=== PATIENT | female | born 1995 | race Caucasian/White ===

== ENCOUNTER → 2021-10-17 08:18 | Outpatient (BNVA) | payer MEDICAID, SELFPAY | PROVIDERS: Visit Provider Physician Assistant | CPT/HCPCS: 99202 ==

== ENCOUNTER → 2021-10-23 14:45 | Outpatient (BNVA) | payer OTHER, SELFPAY | PROVIDERS: Visit Provider Counselor Mental Health | DX: F50.81 Binge eating disorder (principal); F32.A Depression, unspecified | CPT/HCPCS: 90791 ==

== ENCOUNTER 2021-11-17 14:25 | Outpatient (REF) | payer MEDICAID, SELFPAY ==
[2021-11-18 13:31] LABS: H Pylori Breath Test Negative (Negative)
== END 2021-11-17 14:26 | disposition home or self-care (01) ==
LOC: CF 14:25
PROVIDERS: Visit Provider Physician Assistant
DX: Z01.818 Encounter for other preprocedural examination (principal); E66.01 Morbid (severe) obesity due to excess calories; F50.81 Binge eating disorder; Z79.899 Other long term (current) drug therapy; Z71.3 Dietary counseling and surveillance; Z11.0 Encounter for screening for intestinal infectious diseases
CPT/HCPCS: 36415; 83013; 99211; 99212

== ENCOUNTER → 2021-11-27 08:14 | Outpatient (BNVA) | payer MEDICAID, SELFPAY | PROVIDERS: Visit Provider Dietitian, Registered | DX: Z13.89 Encounter for screening for other disorder (principal) ==

== ENCOUNTER 2021-12-09 18:07 | Emergency (ER) | payer MEDICAID, SELFPAY ==
--- NOTE | ~2021-12-09 | XR_ITS ---
EXAMINATION: XR KNEE, RIGHT CLINICAL INFORMATION: Fall and pain COMPARISON: None TECHNIQUE: Two views of the right knee. FINDINGS: No significant joint effusion. Bones are normal anatomic alignment with no acute fracture or dislocation seen. No definitive bony degenerative changes or periosteal reaction. XR/XR knee RT 2V IMPRESSION: No acute bony abnormality.
[2021-12-09 18:44] VITALS: BP 143/52; PULSE 110; RESP 20; TEMP 36.6; O2SAT 100; BMI 68.4
--- NOTE | 2021-12-09 20:52 | ED.EXTPRO ---
HPI - Extremity Problem General Chief complaint: Extremity Problem Stated complaint: rt knee pain Time Seen by Provider: 12/09/21 20:52 Source: patient Mode of arrival: ambulatory Limitations: no limitations History of Present Illness HPI Narrative: 26 y/o female presents to the ER with 1 month of right knee pain. She reports falling on it 1 month ago and has had pain since. She did not get evaluated at that time and has just been taking it easy waiting for it to get better. Over the last 2 days the pain has been worse with sharp shooting pains with certain movements. No new injury. She reports her knee can feel like its going to give out at times. She has been taking Motrin and using topical icy hot with minimal relief. MD Complaint: joint pain Onset (ago): week(s) Pain Consistency: constant Location: right and knee Severity scale (1-10): 7 Quality: aching Radiation: none Relieving factors: immobilization Exacerbating factors: range of motion, weight bearing and palpation Associated symptoms: denies other symptoms Related Data Home Medications Medication Instructions Recorded Confirmed bupropion HCl 150 mg tablet,12 hr 150 mg PO BID 11/17/21 11/17/21 sustained-release phentermine 15 mg capsule 15 mg PO QAM 11/17/21 11/17/21 Allergies Allergy/AdvReac Type Severity Reaction Status Date / Time No Known Allergies Allergy Verified 11/17/21 14:34 Review of Systems Review of Systems: Constitutional: No Fever, No Chills Cardiovascular: No Chest Pain, No SOB Gastrointestinal: No Nausea, No Vomiting Musculoskeletal: + joint pain, No Myalgias Skin: No Skin Lesions, No rash Neuro: No Weakness, No Numbness Heme/Lymph: No Bruising, No Lymphadenopathy [facility] Past Medical History Surgical History No pertinent past surgical history Family History Family History Mother No problems noted. Father No problems noted. Brother No problems noted. Social History Social History (Updated 10/16/21 @ 10:49 by Precious Crisostomo LPN) Alcohol intake: current Alcohol intake frequency: holidays/special occasions only Patient Tobacco Use Status: Never used Tobacco Advance Directives: No Advance Directives Information Provided: No Physical Exam Vital Signs: Vital Signs: Last Vital Signs Temp 97.9 F 12/09/21 18:44 Pulse 110 H 12/09/21 18:44 Resp 20 12/09/21 18:44 BP 143/52 H 12/09/21 18:44 Pulse Ox 100 12/09/21 18:44 BMI result Body Mass Index 68.4 Appearance: Alert. Oriented X3. No acute distress. HEENT: normal inspection CVS: Normal heart rate and rhythm. Pulses normal. Respiratory: No respiratory distress. Skin: Skin warm and dry. Normal skin color. Normal skin turgor. No rashes. Extremities: Normal inspection of the bilateral knees, pain with complete extension and flexion past 90 degrees. Tenderness of the patellar tendon and both medial and lateral joint lines. Unable to assess joint laxity due to body habitus. Neuro: Oriented X 3. No motor deficit. No sensory deficit. Ambulatory with slight limp. Course Course Course Narrative: 26-year-old female presenting to the ER with 1 month of right knee pain after a fall on the [place]. She reports worsening pain the last couple of days with shooting type twinging pains with certain movements. She reports her knee giving out on her when she is going down the stairs. Concern for possible ligamentous injury. Her x-rays today are normal. Will refer to orthopedics for further evaluation treatment. She is ambulatory and pain is tolerable. Jean wrap provided for support and compression, recommended trial of NSAIDs, rest, ice, elevation. She will follow-up with ortho as soon as possible. Stable for DC. Critical Care Time Critical Care Time Critical Care Time: No Discharge Plan Discharge Clinical Impression: Knee sprain Patient Disposition: Home, Self-Care Additional Instructions: Your x-rays today were normal. Recommend following up with orthopedics for further evaluation and treatment. Name and number below. Until you are evaluated by Orthopedics, rest and take it easy. Elevate your knee when able and ice it several times a day. Recommend trial of anti-inflammatory medications such as Aleve, Motrin, ibuprofen, or Advil. Take every 6-8 hours for 2 or 3 days and see if there is any improvement. If you develop new or worsening symptoms call 911 or come back to the ER for further evaluation. Prescriptions: No Action bupropion HCl 150 mg tablet sustained-release 12 hr 150 mg PO BID 0RF phentermine 15 mg capsule 15 mg PO QAM 0RF Referrals: Roxann Fuentes PA-C [Physician [employer]] - 1 week (right knee pain x1 month, concern for possible ligamentous injury) Interventions: ED Discharge Assessment Last Done: 12/09/21 22:05 Discharge Date/Time: 12/09/21 22:06
== END 2021-12-09 22:06 | disposition home or self-care (01) ==
PROVIDERS: Emergency Provider Emergency Medicine Emergency Medical Services
DX: M25.561 Pain in right knee (principal); R00.2 Palpitations; Z79.899 Other long term (current) drug therapy
CPT/HCPCS: 73560; 99283

== ENCOUNTER → 2021-12-17 08:06 | Outpatient (BNVA) | payer MEDICAID, SELFPAY | PROVIDERS: Visit Provider Dietitian, Registered | DX: Z13.89 Encounter for screening for other disorder (principal) ==

== ENCOUNTER → 2021-12-22 14:00 | Outpatient (BNVA) | payer OTHER, SELFPAY | PROVIDERS: Visit Provider Counselor Mental Health | DX: F50.81 Binge eating disorder (principal); F32.A Depression, unspecified; Z63.4 Disappearance and death of family member | CPT/HCPCS: 90834 ==

== ENCOUNTER 2022-01-15 06:04 | Outpatient (REF) | payer OTHER, SELFPAY | END 2022-01-15 06:05 | disposition home or self-care (01) | LOC: HO.HOSX 06:04 | PROVIDERS: Visit Provider Physician Assistant | DX: Z13.89 Encounter for screening for other disorder (principal) ==

== ENCOUNTER 2023-01-31 15:28 | Emergency (ER) | payer OTHER, SELFPAY ==
[2023-01-31 15:36] VITALS: BP 157/97; PULSE 113; RESP 18; TEMP 36.8; O2SAT 99; BMI 70.5
--- NOTE | 2023-01-31 15:38 | ED.GENADULT ---
HPI - General Adult General Chief complaint: Dental/Oral Stated complaint: Gums swollen Time Seen by Provider: 01/31/23 15:58 Source: patient Mode of arrival: ambulatory Limitations: no limitations History of Present Illness HPI narrative: 27 yold female presents for left upper gum swelling near cracked tooth that has too be extracted. patient states no facial sweling, neck swelling, drooling, change in voice, chest pain, rash, or shortness of breath. Related Data Home Medications Medication Instructions Recorded Confirmed bupropion HCl 150 mg tablet,12 hr 150 mg PO BID 11/17/21 11/17/21 sustained-release phentermine 15 mg capsule 15 mg PO QAM 11/17/21 11/17/21 Previous Rx's Medication Instructions Recorded amoxicillin 875 mg-potassium 1 tab PO Q12H 10 days #20 tabs 01/31/23 clavulanate 125 mg tablet naproxen 500 mg tablet 500 mg PO BID PRN pain 7 days #14 01/31/23 tabs Allergies Allergy/AdvReac Type Severity Reaction Status Date / Time No Known Allergies Allergy Verified 11/17/21 14:34 Review of Systems Review of Systems: toothaceh and left upper gum pain Yes all other systems are reviewed and are negative PMFSH Past Medical History Surgical History No pertinent past surgical history Family History Family History Mother No problems noted. Father No problems noted. Brother No problems noted. Social History Social History (Updated 10/16/21 @ 10:49 by Precious Crisostomo LPN) Alcohol intake: current Alcohol intake frequency: holidays/special occasions only Patient Tobacco Use Status: Never used Tobacco Advance Directives: No Advance Directives Information Provided: No Physical Exam ED Vital Signs: Vital Signs - 24 hr 01/31/23 15:36 Temperature 98.3 F Pulse Rate 113 H Respiratory Rate 18 Blood Pressure 157/97 H Pulse Oximetry 99 Oxygen Delivery Method Room Air BMI result Body Mass Index 70.5 Const General: cooperative, healthy appearing, comfortable, no acute distress, well developed, alert, awake and Physically active Orientation/consciousness: oriented to person, oriented to place, oriented to time and patient oriented x3 HENMT Other: no facial swelling, neck swelling, or jaw swelling Head: Yes normal to inspection, Yes No palpable skull fracture present, Yes normocephalic, Yes atraumatic and No abrasion Ears: hearing grossly normal bilaterally, external ears normal, TM's normal bilaterally, TM normal on the right, TM normal on the left, EAC's normal, mastoids normal and no periauricular adenopathy Teeth image: 1. redness and tender, but no fluctulance or drainage. 2. cracked tooth with yellow collection Eyes General: appearance normal, both eyes and all related structures Neck Neck: Yes normal visual inspection, Yes full ROM, Yes no lymphadenopathy, Yes no meningeal signs, Yes trachea midline, Yes supple, No anterior neck swelling and No tender Chest Chest palpation & inspection: normal inspection of the chest and normal palpation of entire chest wall Resp Effort & Inspection: normal respiratory effort and able to speak in complete sentences Auscultation: clear to auscultation bilaterally Cardio Jugular venous distension: no JVD Heart sounds: S1 normal heart sound present and S2 normal heart sound present GI Inspection: Yes normal to inspection and No abdominal wall ecchymosis Palpation (GI): Soft to palpation, not firm, nontender, no guarding and not rigid General: No CVA tenderness and Yes no CVA tenderness Back/Spine/Pelvis Back: no CVA tenderness, No CVA tenderness and No back tenderness Skin General skin exam: no rashes or lesions noted and elasticity normal Neuro General: oriented to person, oriented to place, oriented to time, patient oriented x3, gait normal, tone normal, moves all extremities, Normal light touch and pain sensation, no meningeal signs, no focal motor deficits, CN's II-XI intact bilaterally and normal sensation to monofilament Extrem General: Yes normal to inspection and Yes full ROM Psych Appearance: grossly normal, well kempt and not disheveled Course Course Course Narrative: RME: 27 yold female with pmh of poor dental hygeine presents to the ED for left upper gum near cracked tooth. patient denies any recent trauma to the face, neck swelling, drooling, or facial swelling. positive for fum swelling near cracked tooth. Repeat blood pressure improved. Medical Decision Making Medical Decision Making MDM Narrative: 27 yold female with left upper molar pain with slight gum swelling. cracked tooth with pus collectino on exam and gum is red, but no fluctulance or drainage. no neck/face/jaw swelling. no chest pain or shortness of breath. No incision and drainge ordered Differential Diagnosis Differential Diagnoses: The differential diagnosis associated with the presentation includes (Glynn angina, tooth infection, gum abscess, retropharyngeal abscess, ) Prescription Management I considered prescription management with: Pain Medication and Antibiotic Discharge Plan Discharge Clinical Impression: Toothache Patient Disposition: Home, Self-Care Instructions: Toothache (ED) Additional Instructions: Return to the ED immediatley for facial swelling, redness, neck swelling, worsening dental/gum pain, drooling, fever, chills, change in voice, or any other concerning symptoms. Prescriptions: New amoxicillin-pot clavulanate 875-125 mg tablet 1 tab PO Q12H 10 Days Qty: 20 0RF naproxen 500 mg tablet 500 mg PO BID PRN (Reason: pain) 7 Days Qty: 14 0RF No Action bupropion HCl 150 mg tablet sustained-release 12 hr 150 mg PO BID phentermine 15 mg capsule 15 mg PO QAM Stand Alone Forms: Work/School Release Interventions: ED Discharge Assessment Last Done: 01/31/23 15:58 Discharge Date/Time: 01/31/23 16:05 Print Language: Citizen Of [place]
--- NOTE | 2023-01-31 15:58 | PC.NURSE ---
eval and dc by pit
== END 2023-01-31 16:05 | disposition home or self-care (01) ==
LOC: HO.ED 16:04
PROVIDERS: Emergency Provider Student in an Organized Health Care Education/Training Program
DX: K08.89 Other specified disorders of teeth and supporting structures (principal); Z79.899 Other long term (current) drug therapy
CPT/HCPCS: 99282; 99283